=== PATIENT | female | born 1980 | race Caucasian/White ===

== ENCOUNTER 2018-12-20 09:27 | Day surgery (SDC) | payer OTHER ==
[2018-12-19 10:39] VITALS: BMI 24.5
[~2018-12-20 09:27] MED LIST: LIDOCAINE HCL 1%, 10 MG/ML (20ML VIAL) NR ONE; ceFAZolin SODIUM 1 GM VIAL IVPB ONE
[2018-12-20 09:55] LABS: HCG,QUALITATIVE URINE Negative
[2018-12-20 10:20] LABS: EPI CELLS 11.6 /HPF (0-5/HPF); URINE APPEARANCE CLOUDY; URINE BACTERIA 867.2 /hpf (NEGATIVE); URINE BILIRUBIN NEGATIVE (NEGATIVE); URINE CASTS 26 /lpf (0-8); URINE COLOR YELLOW; URINE GLUCOSE (UA) NEGATIVE (NEGATIVE); URINE KETONE NEGATIVE (NEGATIVE); URINE LEUK ESTERASE 2+ (NEGATIVE); URINE NITRITE NEGATIVE (NEGATIVE); URINE PROTEIN NEGATIVE (NEGATIVE); URINE RBC 5 /hpf (0-4); URINE UROBILINOGEN 0.2 mg/dL (0.2-1.0); URINE WBC 87 /hpf (0-5)
[2018-12-20] MEDS ORDERED: MIDAZOLAM HCL 2 MG/2 ML SINGLE DOSE VIAL ONE (11:11)
[2018-12-20] MEDS ORDERED: PROPOFOL 20 ML ONE (11:12)
[2018-12-20] MEDS ORDERED: LIDOCAINE HCL 1%, 10 MG/ML (20ML VIAL) ONE (11:21)
[2018-12-20] MEDS ORDERED: LIDOCAINE HCL/PF 2% SDV 5ML VIAL ONE (11:44)
[2018-12-20] MEDS ORDERED: LIDOCAINE HCL 1%, 10 MG/ML (20ML VIAL) NR ONE (11:52)
[2018-12-20] MEDS ORDERED: PROMETHAZINE HCL 25 MG/1 ML VIAL IVPB PRN (12:13)
[2018-12-20] MEDS ORDERED: ONDANSETRON 4 MG/2 ML VIAL IVPUSH PRN (12:13)
[2018-12-20] MEDS ORDERED: oxyCODONE HCL 5 MG TABLET PO PRN (12:13)
[2018-12-20] MEDS ORDERED: LACTATED RINGERS SOLUTION 1,000 ML IV SCH (12:15)
[2018-12-20 13:47] VITALS: TEMP 97.5
[2018-12-20 14:27] VITALS: BP 100/66; PULSE 54
--- NOTE | 2018-12-21 06:46 | OP ---
DATE OF OPERATION: 12/20/2018 PREOPERATIVE DIAGNOSIS: Right breast mass, fibroepithelial tumor. POSTOPERATIVE DIAGNOSIS: Right breast mass, fibroepithelial tumor. PROCEDURE: Excision of right breast mass. SURGEON: Mary Jane Smith MD ANESTHESIA: Local and IV sedation. ESTIMATED BLOOD LOSS: Minimal. COMPLICATIONS: None. DISPOSITION: Stable. INDICATIONS FOR PROCEDURE: Patient presented with a palpable mass in the right breast 8 o'clock location 3 cm from the nipple. This was seen on mammography and ultrasound. 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 My recommendation was excision. The procedure was discussed with all the questions answered. PROCEDURE IN DETAIL: Patient was brought to [facility] in [place], taken into the operating room, and after IV sedation, the right breast was prepped and draped in sterile fashion. The area in the lower right breast was anesthetized with 1% lidocaine without epinephrine. A radial incision was made over the palpable finding at the right 8 o'clock location, and this was excised en bloc and sent to Pathology in formalin for permanent section. Hemostasis was assured with electrocautery. The parenchyma was approximated with interrupted 2-0 Vicryl. Skin approximated with interrupted 3-0 Vicryl and running 4-0 Prolene. A sterile dressing with Tegaderm and 4x4s was applied. She tolerated the procedure well and was taken to recovery in good condition. MARY JANE SMITH M.D. [id number]
--- NOTE | 2018-12-23 18:29 | PATH ---
Surgical Pathology Report Patient Name: SCOTT VALENZUELA [facility]. Rec. #: [id number] /Age/Gender: 1980 (Age: 38) / F Account: [id number] Location: [facility] Taken: 12/20/2018 Received: 12/20/2018 Reported: 12/23/2018 Physicians: Mary Jane Palomo M.D. Specimen(s) Received RIGHT BREAST MASS Clinical History Right breast mass-fibroepithelial lesion Final Diagnosis RIGHT BREAST MASS, EXCISION: BREAST TISSUE WITH FIBROADENOMA. 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 Electronically Signed Quirino Cedeno M.D. Gross Description Received in formalin labeled "right breast mass," is a 2.6 x 2.0 x 1.8 cm irregular, unoriented portion of fibroadipose tissue. There is no needle localization wire present. There is no skin or nipple present. The specimen is inked black and serially sectioned. Sectioning reveals a 1.4 x 1.0 x 0.6 cm powers-pink, rubbery, well-circumscribed lesion focally abutting the radial margin. The specimen is entirely and sequentially submitted in 5 cassettes with the lesion in cassettes 3-4. Total formalin fixation time: Approximately 6 hours 12/20/201812/20/2018
== END 2018-12-20 14:28 | disposition home or self-care (01) ==
LOC: JASU-SURG 09:27
PROVIDERS: ATTEND Surgery
PROC: 0HBT0ZX Excision of Right Breast, Open Approach, Diagnostic (ICD-10-PCS; principal; 2018-12-20 11:00)
DX: D24.1 Benign neoplasm of right breast (principal)
CPT/HCPCS: 81003; 84703; 88307-TC; 94760